=== PATIENT | female | born 1960 | race Caucasian/White ===

== ENCOUNTER 2017-04-25 05:26 | Emergency (ER) | payer OTHER ==
[~2017-04-25] VITALS: Ht 162.6 cm; Wt 86.2 kg
[~2017-04-25 05:26] MED LIST: ASPIR 8181 MG; AVAPRO150 MG; TRAMADOL HCL50 MG PO
== END 2017-04-25 10:48 | disposition home or self-care (01) ==
LOC: ER 05:26
DX: J11.1 Influenza due to unidentified influenza virus with other respiratory manifestations (principal)

== ENCOUNTER 2017-10-01 03:36 | Emergency (ER) | payer OTHER ==
[~2017-10-01] VITALS: Ht 162.6 cm; Wt 90.7 kg
== END 2017-10-01 09:38 | disposition home or self-care (01) ==
LOC: ER 03:36
DX: S00.83XA Contusion of other part of head, initial encounter (principal); G44.309 Post-traumatic headache, unspecified, not intractable; W18.39XA Other fall on same level, initial encounter; Y93.89 Activity, other specified; Y92.098 Other place in other non-institutional residence as the place of occurrence of the external cause; Y99.8 Other external cause status

== ENCOUNTER 2017-11-15 20:22 | Emergency (ER) | payer OTHER ==
[~2017-11-15] VITALS: Ht 162.6 cm; Wt 93.0 kg
== END 2017-11-16 00:14 | disposition home or self-care (01) ==
LOC: ER 20:22
DX: S00.83XA Contusion of other part of head, initial encounter (principal); S80.01XA Contusion of right knee, initial encounter; S30.0XXA Contusion of lower back and pelvis, initial encounter; W18.39XA Other fall on same level, initial encounter; Y93.89 Activity, other specified; Y92.098 Other place in other non-institutional residence as the place of occurrence of the external cause; Y99.8 Other external cause status

== ENCOUNTER 2019-04-16 10:58 | Emergency (ER) | payer OTHER ==
[~2019-04-16] VITALS: Ht 162.6 cm; Wt 90.7 kg
[2019-04-16] MEDS ORDERED: ASPIR 8181 MG (11:41)
== END 2019-04-16 15:53 | disposition home or self-care (01) ==
LOC: ER 10:58
DX: N39.0 Urinary tract infection, site not specified (principal)